=== PATIENT | male | born 1990 | race Caucasian/White ===

== ENCOUNTER → 2020-05-13 | Emergency (ER) | payer OTHER ==
[~2020-05-13] VITALS: Ht 162.6 cm; Wt 74.4 kg
[~2020-05-13] MED LIST: DOLOGEN CAPLET1 EACH PO
== END | disposition left against medical advice (07) ==
LOC: ER 14:46
DX: Z53.21 Procedure and treatment not carried out due to patient leaving prior to being seen by health care provider (principal)

== ENCOUNTER 2023-01-06 14:13 | Emergency (ER) | payer OTHER ==
[~2023-01-06] VITALS: Ht 162.6 cm; Wt 76.2 kg
[2023-01-06] MEDS ORDERED: TUSNEL LIQUID178 ML PO (17:34)
[2023-01-06] MEDS ORDERED: PROAIR RESPICL90 MCG IH (17:34)
[2023-01-06] MEDS ORDERED: ZITHROMAX500 MG PO (17:34)
[2023-01-06] MEDS ORDERED: ZYRTEC10 M3 PO (17:34)
== END 2023-01-06 18:10 | disposition home or self-care (01) ==
LOC: ER 14:13
PROVIDERS: General Practice
DX: B34.9 Viral infection, unspecified (principal); Z88.6 Allergy status to analgesic agent